=== PATIENT | female | born 1995 | race Two or more races ===

== ENCOUNTER 2020-08-16 16:32 | Emergency (ER) | payer BC, OTHER ==
[~2020-08-16] VITALS: Ht 160 cm; Wt 95.3 kg
--- NOTE | 2020-08-16 17:32 | NUR ---
Inner thighs cleaned per MD request, Pt tolorated.
[2020-08-16] MEDS ORDERED: ZINC85CR TP (17:46)
[2020-08-16 18:00] VITALS: BP 132/70
--- NOTE | 2020-08-16 18:29 | NUR ---
Patient given written and verbal discharge instructions. Patient verbalizes understanding of instructions. Patient is ambulatory with steady gait. Refuses offer of half-way placement. Patient given list of available shelters in surrounding area.
== END 2020-08-16 18:30 | disposition home or self-care (01) ==
LOC: ER 16:32
DX: L25.9 Unspecified contact dermatitis, unspecified cause (principal); Z59.0 Homelessness
CPT/HCPCS: A4663